=== PATIENT | male | born 1975 | race Two or more races ===

== ENCOUNTER 2018-07-12 09:34 | Inpatient (IN) | payer OTHER ==
[~2018-07-12] VITALS: Ht 170.2 cm; Wt 87.8 kg
[2018-07-12 12:53] LABS: Basophils # (auto) 0.1 uL; Basophils % (auto) 0.9 % (0.0-2.0); Eosinophils # (auto) 0.7 uL; Hemoglobin 16.9 g/dL (13.5-17.5); Lymphocytes # (auto) 2.5 uL; Lymphocytes % (auto) 21.1 % (10.0-50.0); Mean Corpuscular Hemoglobin 29.6 pg (28.0-32.0); Mean Corpuscular Hgb Conc. 34.5 g/dL (32.0-36.0); Mean Corpuscular Volume 85.8 fL (80.0-100.0); Monocytes # (auto) 0.8 uL; Monocytes % (auto) 6.7 % (0.0-12.0); Neutrophils # (auto) 7.9 uL; Neutrophils % (auto) 65.3 % (37.0-80.0); Nucleated Red Blood Cells % 0.1 %; Platelet Count (auto) 215 10^3/uL (140-450); Red Blood Cells 5.71 10^6/uL (4.5-5.90); Red Cell Distribution Width 12.9 % (11.8-14.3); White Blood Cell 12.1 10^3/uL (4.4-10.8)
[2018-07-12 12:58] LABS: Urine Bacteria NONE SEEN /hpf (None Seen); Urine Blood Negative /uL (Negative); Urine Specific Gravity 1.026 (1.001-1.035); Urine WBC 1 /hpf (0 - 3)
[2018-07-12 13:10] LABS: Albumin 4.1 g/dL (3.4-5.0); BUN/Creatinine Ratio 14.3; Calcium 8.8 mg/dL (8.5-10.1); Magnesium 2.2 mg/dL (1.6-2.6); Potassium 3.9 mmol/L (3.5-5.1)
[2018-07-12 13:33] LABS: Bilirubin, Total 0.9 mg/dL (0.2-1.0); Total Protein 8.4 g/dL (6.4-8.2)
[2018-07-12] MEDS ORDERED: SODIUM CHLORIDE 0.9% 1,000 ML IVB ONE (16:30)
[2018-07-12] MEDS ORDERED: SODIUM CHLORIDE 0.9% 1,000 ML IV ONE (16:45)
[2018-07-12 17:05] LABS: INR 1.03 (0.9-1.15); Partial Thromboplastin Time 30.6 sec (23.78-33.04)
[2018-07-12 17:06] LABS: Magnesium 2.4 mg/dL (1.6-2.6)
[2018-07-12] MEDS ORDERED: cefTRIAXone SOD 1,000 MG VL IV ONE (17:15)
[2018-07-12] MEDS ORDERED: cefTRIAXone 1GM/50ML D5W 50 ML IV ONE ×2 (17:22→17:30)
[2018-07-12] MEDS ORDERED: MORPHINE SULF INJ 2 MG/ML SYRINGE 1ML IV PRN ×2 (18:00)
[2018-07-12] MEDS ORDERED: SOD CHL 0.9%/ KCL 20MEQ 1,000 ML IV SCH (18:00)
[2018-07-12] MEDS ORDERED: ONDANSETRON HCL 4 MG/2 ML VIAL IV PRN ×2 (18:00→19:00)
[2018-07-12] MEDS ORDERED: NITROGLYCERIN 0.4 MG SL TAB SL PRN (18:00)
[2018-07-12] MEDS ORDERED: LIDOCAINE 1% (LOCAL ANESTH.) PF 5ml SDV ONE (18:08)
[2018-07-12] MEDS ORDERED: SUCCINYLCHOLINE CHLORIDE 20 MG/ML 10ML VIAL IV ONE (18:08)
[2018-07-12] MEDS ORDERED: PROPOFOL 10 MG/ML 20 ML IV ONE (18:10)
[2018-07-12] MEDS ORDERED: MIDAZOLAM HCL 1MG/1ML-2 ML VIAL ONE (18:10)
[2018-07-12] MEDS ORDERED: ROCURONIUM 10MG/ML 10ML VIAL IV ONE (18:11)
[2018-07-12] MEDS ORDERED: fentaNYL CITRATE 100 MCG/2 ML VL ONE (18:21)
[2018-07-12] MEDS ORDERED: PROMETHAZINE HCL 25 MG/ML 1ML IV PRN (18:30)
[2018-07-12] MEDS ORDERED: ONDANSETRON HCL 4 MG/2 ML VIAL IV ONE (18:30)
[2018-07-12] MEDS ORDERED: METOCLOPRAMIDE HCL 5MG/ml INJ 2ml VIAL IV ONE (18:30)
[2018-07-12] MEDS ORDERED: HYDROmorphone HCL 2 MG/ML VL IV PRN ×2 (18:30→20:00)
[2018-07-12] MEDS ORDERED: NALOXONE HCL 0.4 MG/ML VIAL IV PRN (18:30)
[2018-07-12] MEDS ORDERED: STERILE WATER 10 ML ONE (18:36)
[2018-07-12] MEDS ORDERED: ePHEDrine SULFATE 50 MG/ML AMP ONE (18:36)
[2018-07-12] MEDS ORDERED: KETOROLAC TROMETH 30 MG/ML 1ML VIAL ONE (18:39)
[2018-07-12] MEDS ORDERED: NEOSTIGMINE 1 MG/ML INJ (10mg/10ML VIAL) ONE (18:41)
[2018-07-12] MEDS ORDERED: GLYCOPYRROLATE 0.2 MG/ML 1ML VIAL ONE (18:41)
[2018-07-12] MEDS ORDERED: HYDROmorphone HCL 2 MG/ML VL IV ONE (19:00)
[2018-07-12] MEDS: HYDROmorphone HCL 2 MG/ML VL IV PRN ×3 (19:30→20:00)
[2018-07-12 20:30] VITALS: BP 126/79
--- NOTE | 2018-07-12 20:30 | NUR ---
INITIAL CONTACT PATIENT IS A&OX4, FAMILY AT BEDSIDE. ORIENTED TO STAFF AND POC. NO C/O PAIN AT THIS TIME. SOME NAUSEA NOTED. BEDSIDE CHECK COMPLETED WITH IVANIA FROM OR, THREE INCISIONS MEDIAL ABDOMEN, 4X4 GAUZE COVERED WITH TEGADERM INTACT AND DRY, ABDOMINAL BINDER IN PLACE. SCDS ON BOTH LEGS, 20 GAUGE IV LEFT AC, ASYMPTOMATIC. O2 5 LITERS NASAL CANNULA, IVANIA STATED O2 DESATURATED TO LOW 90S ON ROOM AIR. PULSES PRESENT AND NORMAL BILATERAL DORSALIS PEDIS, SENSATION PRESENT. BOWEL SOUNDS NORMAL ON RIGHT SIDE, HYPOACTIVE ON THE LEFT. PATIENT IS ABLE TO REPOSITION HIMSELF, CALL LIGHT WITHIN REACH. Signed: 07/13/18 at 333 by SN MICHAEL <Co-Signature Required> Co-Signed: 07/13/18 at 333 by Noelle Rebolledo RN
[2018-07-12] MEDS: D5W/SOD CHL 0.45%/KCL 20MEQ 1,000 ML IV SCH (20:49)
[2018-07-12 21:00] VITALS: BP 126/79
--- NOTE | 2018-07-12 21:00 | NUR ---
INCENTIVE SPIROMETER EDUCATION ATTEMPTED TO EDUCATE PATIENT ON IS USE, HE WAS DISTRACTED DUE TO NAUSEA. EXPLAINED TO HOW TO USE AND THE IMPORTANCE. WILL ATTEMPT TO EDUCATE PATIENT AFTER ANTI NAUSEA MEDICATION IS GIVEN. Signed: 07/13/18 at 0336 by SN MICHAEL <Co-Signature Required> Co-Signed: 07/13/18 at 335 by Noelle Rebolledo RN
[2018-07-12] MEDS: metroNIDAZOLE 500MG/100ML 100 ML IV SCH (21:05)
[2018-07-12] MEDS ORDERED: FAMOTIDINE (10MG/ML) 2ML VL IV SCH (22:00)
[2018-07-12] MEDS ORDERED: metroNIDAZOLE 500MG/100ML 100 ML IV SCH (22:00)
--- NOTE | 2018-07-13 01:00 | NUR ---
PATIENT AMBULATED TO RESTROOM, NO DIFFICULTIES WALKING, GAIT EVEN AND STEADY. EDUCATED PATIENT ON INCENTIVE SPIROMETER USE, HE WAS RECEPTIVE TO EDUCATION. PATIENT DEMONSTRATED USE CORRECTLY. Signed: 07/13/18 at 0338 by SN MICHAEL <Co-Signature Required> Co-Signed: 07/13/18 at 0338 by Noelle Rebolledo RN
--- NOTE | 2018-07-13 01:30 | NUR ---
PATIENT C/O OXYGEN NASAL CANNULA CAUSING DISCOMFORT, NASAL CANNULA REMOVED AT THIS TIME FOR COMFORT. WILL REASSESS OXYGEN. Signed: 07/13/18 at 034 by SN MICHAEL <Co-Signature Required> Co-Signed: 07/13/18 at 339 by Noelle Rebolledo RN
--- NOTE | 2018-07-13 02:30 | NUR ---
OXYGEN SATURATION REASSESSED AT 95% ON ROOM AIR. Signed: 07/13/18 at 034 by SN MICHAEL <Co-Signature Required> Co-Signed: 07/13/18 at 340 by Noelle Rebolledo RN
[2018-07-13 05:00] VITALS: BP 111/67
[2018-07-13] MEDS: metroNIDAZOLE 500MG/100ML 100 ML IV SCH ×2 (05:32→14:39)
[2018-07-13] MEDS: D5W/SOD CHL 0.45%/KCL 20MEQ 1,000 ML IV SCH ×2 (05:34→14:39)
[2018-07-13 06:39] LABS: INR 1.01 (0.9-1.15); Partial Thromboplastin Time 27.5 sec (23.78-33.04); Prothrombin Time 10.8 sec (9.27-12.13)
[2018-07-13 06:46] LABS: Potassium 4.2 mmol/L (3.5-5.1)
[2018-07-13 06:53] LABS: Basophils # (auto) 0.1 uL; Eosinophils # (auto) 0.2 uL; Eosinophils % (auto) 2.9 % (0.0-7.0); Hematocrit 42.4 % (41.0-53.0); Hemoglobin 14.9 g/dL (13.5-17.5); Lymphocytes # (auto) 2.1 uL; Lymphocytes % (auto) 24.6 % (10.0-50.0); Mean Corpuscular Hgb Conc. 35.2 g/dL (32.0-36.0); Mean Corpuscular Volume 85.2 fL (80.0-100.0); Monocytes # (auto) 0.7 uL; Neutrophils # (auto) 5.5 uL; Neutrophils % (auto) 63.5 % (37.0-80.0); Nucleated Red Blood Cells % 0.1 %; Platelet Count (auto) 185 10^3/uL (140-450); Red Blood Cells 4.97 10^6/uL (4.5-5.90); White Blood Cell 8.7 10^3/uL (4.4-10.8)
--- NOTE | 2018-07-13 07:00 | NUR ---
CLOSING NOTE PATIENT IS SLEEPING AT THIS TIME, VISIBLE RISE AND FALL OF CHEST NOTED. NO S/S OF DISTRESS. DRESSING TO ABD C/D/I. ABD BINDER IN PLACE. CALL LIGHT WITHIN REACH.
[2018-07-13 07:08] LABS: Albumin 3.4 g/dL (3.4-5.0); BUN/Creatinine Ratio 8.6; Bilirubin, Total 0.8 mg/dL (0.2-1.0); Calcium 8.5 mg/dL (8.5-10.1); Total Protein 6.9 g/dL (6.4-8.2)
--- NOTE | 2018-07-13 07:25 | NUR ---
PT AWAKE, ALERT, ORIENTED x4 ABLE TO LET NEEDS KNOWN. DENIES ANY PAIN AT MOMENT. AMBULATORY TO RESTROOM. IV PATENT TO LAC#20 BED IN LOWEST POSITION, CALL LIGHT WITHIN REACH.
[2018-07-13 09:00] VITALS: BP 118/70
[2018-07-13] MEDS ORDERED: ESOMEPRAZOLE 40 MG/5ml VIAL INJ IV SCH (10:00)
--- NOTE | 2018-07-13 12:30 | NUR ---
DR. REYNOLDS IN TO SEE PT. PLAN OF CARE IN DISCUSSION. PT AGREEABLE WITH PLAN.
[2018-07-13] MEDS ORDERED: METR500T PO (12:37)
[2018-07-13] MEDS ORDERED: CIPR-173 PO (12:37)
[2018-07-13] MEDS ORDERED: PROM25TA5 PO (12:37)
[2018-07-13 13:00] VITALS: BP 120/71
--- NOTE | 2018-07-13 16:11 | NUR ---
PT HAS HAD 2 BM FORMED IN CONSISTENCY. PT DENIES ABD PAIN AT MOMENT. PASSES GAS, AND BURP. PT HAS TOLERATED ADVANCED DIET WELL.
[2018-07-13 17:00] VITALS: BP 124/70
--- NOTE | 2018-07-13 18:29 | NUR ---
DISCHARGE INSTRUCTIONS GIVEN TO PT AND . BOTH VERBALIZED UNDERSTANDING FOR PRESCRIPTION ORDERS AND FOLLOW UP APPOINTMENT. ALL QUESTIONS AND CONCERNS ADDRESSED. EDUCATIONAL MATERIAL PROVIDED. PT ESCORTED SAFELY OUT OF UNIT VIA AMBULATION. NO S/S OF DISTRESS NOTED.
== END 2018-07-13 20:00 | disposition home or self-care (01) | DRG 343 ==
LOC: ER 09:34 → OR 1 17:55 → OVERFLOW 17:57 → CENTRAL 20:30
PROVIDERS: ADMIT Nurse Practitioner Acute Care; ATTEND Internal Medicine
PROC: 0DTJ4ZZ Resection of Appendix, Percutaneous Endoscopic Approach (ICD-10-PCS; principal; 2018-07-12 18:10)
DX: K35.80 Unspecified acute appendicitis (principal); Z68.30 Body mass index [BMI] 30.0-30.9, adult; E66.01 Morbid (severe) obesity due to excess calories; K57.30 Diverticulosis of large intestine without perforation or abscess without bleeding; I10 Essential (primary) hypertension; Z82.49 Family history of ischemic heart disease and other diseases of the circulatory system; Z83.3 Family history of diabetes mellitus
CPT/HCPCS: 36415; 71045; 74176; 80053; 81001; 82150; 83690; 83735; 85025; 85610; 85730; 86850; 86900; 86901; 94761; 96365; G0378; J0330; J0696; J1885; J2250; J2405; J2704; J3490

== ENCOUNTER 2018-09-15 09:08 | Day surgery (SDC) | payer OTHER ==
[2018-09-12 10:30] LABS: Basophils # (auto) 0.1 uL; Basophils % (auto) 1.9 % (0.0-2.0); Eosinophils # (auto) 0.6 uL; Eosinophils % (auto) 8.3 % (0.0-7.0); Hematocrit 49.2 % (41.0-53.0); Hemoglobin 16.9 g/dL (13.5-17.5); Lymphocytes # (auto) 2.4 uL; Lymphocytes % (auto) 33.2 % (10.0-50.0); Mean Corpuscular Hemoglobin 29.5 pg (28.0-32.0); Mean Corpuscular Hgb Conc. 34.4 g/dL (32.0-36.0); Mean Corpuscular Volume 85.9 fL (80.0-100.0); Monocytes # (auto) 0.4 uL; Monocytes % (auto) 5.6 % (0.0-12.0); Neutrophils # (auto) 3.7 uL; Nucleated Red Blood Cells % 0.2 %; Platelet Count (auto) 217 10^3/uL (140-450); Red Blood Cells 5.73 10^6/uL (4.5-5.90); Red Cell Distribution Width 12.7 % (11.8-14.3); White Blood Cell 7.2 10^3/uL (4.4-10.8)
[2018-09-12 10:54] LABS: INR 1.01 (0.9-1.15); Partial Thromboplastin Time 28.2 sec (23.64-32.05)
[~2018-09-15] VITALS: Ht 170.2 cm; Wt 86.2 kg
[2018-09-15] MEDS ORDERED: SODIUM CHLORIDE LOCK 10 ML ONE (10:00)
[2018-09-15] MEDS ORDERED: LIDOCAINE VISCOUS 2% 15ML UD ONE (10:00)
[2018-09-15] MEDS: fentaNYL CITRATE 100 MCG/2 ML VL ONE ×2 (10:01→10:04)
[2018-09-15] MEDS: MIDAZOLAM HCL 5 MG/ML-1ML VIAL ONE ×3 (10:01→10:08)
[2018-09-15] MEDS ORDERED: diphenhdrAMINE HCL 50 MG/1 ML VL ONE (10:01)
[2018-09-15 11:18] VITALS: BP 126/77
== END 2018-09-15 11:27 | disposition home or self-care (01) ==
LOC: GI 09:08
PROVIDERS: ATTEND Internal Medicine Gastroenterology
DX: K63.5 Polyp of colon (principal); K29.50 Unspecified chronic gastritis without bleeding; K64.8 Other hemorrhoids; K29.80 Duodenitis without bleeding; Z90.49 Acquired absence of other specified parts of digestive tract
CPT/HCPCS: 36415; 43235; 45380; 85025; 85610; 85730; 88304; 88342; J1200; J2250; J3010; J7030; 99152

== ENCOUNTER 2021-07-02 06:23 | Emergency (ER) | payer OTHER ==
[~2021-07-02] VITALS: Ht 170.2 cm; Wt 90.7 kg
[2021-07-02 07:24] LABS: Basophils # (auto) 0.1 10 ^3/uL (0-0.2); Basophils % (auto) 0.5 % (0.0-2.0); Eosinophils # (auto) 0 10 ^3/uL (0-0.8); Eosinophils % (auto) 0.3 % (0.0-7.0); Hematocrit 48.3 % (41.0-53.0); Lymphocytes # (auto) 1.2 10 ^3/uL (0.4-5.4); Lymphocytes % (auto) 8.9 % (10.0-50.0); Mean Corpuscular Hemoglobin 29.6 pg (28.0-32.0); Mean Corpuscular Hgb Conc. 35.2 g/dL (32.0-36.0); Mean Corpuscular Volume 83.9 fL (80.0-100.0); Monocytes % (auto) 7.8 % (0.0-12.0); Neutrophils % (auto) 82.5 % (37.0-80.0); Nucleated Red Blood Cells % 0.1 %; Red Blood Cells 5.76 10^6/uL (4.5-5.90); White Blood Cell 13.3 10^3/uL (4.4-10.8)
[2021-07-02 07:29] LABS: BUN/Creatinine Ratio 10.7; Calcium 9.1 mg/dL (8.5-10.1); Potassium 3.6 mmol/L (3.5-5.1)
[2021-07-02 07:32] LABS: Bilirubin, Total 0.6 mg/dL (0.2-1.0); Total Protein 8.6 g/dL (6.4-8.2)
[2021-07-02] MEDS ORDERED: IOHEXOL 350 MG/ML 100ML IJ ONE (07:49)
[2021-07-02] MEDS ORDERED: ONDANSETRON HCL 4 MG/2 ML VIAL IV ONE ×2 (08:00→11:45)
[2021-07-02] MEDS ORDERED: SODIUM CHLORIDE 0.9% 1,000 ML IV ONE (08:00)
[2021-07-02] MEDS ORDERED: HYDROmorphone HCL 2 MG/ML VL/or syr IV ONE ×2 (08:00→11:45)
[2021-07-02 11:26] LABS: Urine Bacteria NONE SEEN /hpf (None Seen); Urine Blood 1+ /uL (Negative); Urine Mucus FEW (None Seen); Urine WBC <1 /hpf (0 - 3)
[2021-07-02 11:27] LABS: Urine Specific Gravity 1.023 (1.001-1.035)
[2021-07-02 11:33] LABS: Amphetamine Screen, Urine NEGATIVE (NEGATIVE); Barbiturate Scree,Urine NEGATIVE (NEGATIVE); Benzodiazephine Screen, Urine NEGATIVE (NEGATIVE); Cannabinoid Screen, Urine NEGATIVE (NEGATIVE); Cocaine Screen, Urine NEGATIVE (NEGATIVE); Opiate Scree,Urine NEGATIVE (NEGATIVE); Phencyclidine Screen, Urine NEGATIVE (NEGATIVE)
[2021-07-02] MEDS ORDERED: metroNIDAZOLE 500MG/100ML 100 ML IV ONE (11:45)
[2021-07-02] MEDS ORDERED: SODIUM CHLORIDE 0.9% 500 ML IV ONE (11:45)
[2021-07-02] MEDS ORDERED: PERCOT PO (15:01)
[2021-07-02] MEDS ORDERED: METR500T PO (15:01)
[2021-07-02] MEDS ORDERED: ONDA-144 PO (15:01)
[2021-07-02] MEDS ORDERED: CIPR-173 PO (15:01)
[2021-07-02 15:30] VITALS: BP 118/66
== END 2021-07-02 14:32 | disposition home or self-care (01) ==
LOC: ER 06:23
DX: K52.9 Noninfective gastroenteritis and colitis, unspecified (principal); R07.89 Other chest pain
CPT/HCPCS: 36415; 70450; 71045; 71260; 74177; 80053; 80307; 81001; 83605; 83735; 83880; 84443; 84484; 85025; 87040; 93005; 96361; 96365; 96375; 96376; 99285; J1170; J2405; J3490; J7030; Q9967